=== PATIENT | male | born 1960 | race Caucasian/White ===

== ENCOUNTER 2017-09-16 11:17 | Emergency (ER) | payer OTHER | END 2017-09-16 12:24 | disposition left against medical advice (07) | LOC: ERS 11:17 | DX: Z53.21 Procedure and treatment not carried out due to patient leaving prior to being seen by health care provider (principal) ==

== ENCOUNTER 2020-10-09 23:17 | Emergency (ER) | payer BC, OTHER | END 2020-10-10 00:44 | disposition home or self-care (01) | LOC: ERS 23:17 | DX: S93.602A Unspecified sprain of left foot, initial encounter (principal); I10 Essential (primary) hypertension; F17.210 Nicotine dependence, cigarettes, uncomplicated; Z79.899 Other long term (current) drug therapy; Z79.82 Long term (current) use of aspirin; Z79.84 Long term (current) use of oral hypoglycemic drugs; W11.XXXA Fall on and from ladder, initial encounter ==

== ENCOUNTER 2020-10-28 14:38 | Outpatient (CLI) | payer BC | END 2020-10-28 14:39 | disposition home or self-care (01) | LOC: BICRAD 14:38 | PROVIDERS: ATTEND Physician Assistant | DX: M79.672 Pain in left foot (principal) ==

== ENCOUNTER 2020-11-01 09:14 | Outpatient (CLI) | payer BC | END 2020-11-01 09:15 | disposition home or self-care (01) | LOC: BICMRI 09:14 | PROVIDERS: ATTEND Physician Assistant | DX: M79.672 Pain in left foot (principal); M66.862 Spontaneous rupture of other tendons, left lower leg ==